=== PATIENT | female | born 1940 | race Caucasian/White ===

== ENCOUNTER 2021-05-26 08:36 | Emergency (ER) | payer MEDICARE, BC ==
[~2021-05-26] VITALS: Ht 167.6 cm; Wt 71.0 kg
[~2021-05-26 08:36] MED LIST: APIX5TAB3 PO; COR3.125T PO; FURO-150 PO; LISI2.5T14 PO; ROBCFL PO; ROSU10TA28 PO; RYT225T PO
[2021-05-26] MEDS ORDERED: diltiazem 5mg/ml 5ml inj. IV ONE (08:55)
[2021-05-26 09:11] LABS: BASOPHILS % (AUTO) 0.6 % (0-1); EOSINOPHILS # (AUTO) 0.2 X10'3 (0-0.9); EOSINOPHILS % (AUTO) 2.8 % (0-6); HEMATOCRIT 37.5 % (35.0-45.0); HEMOGLOBIN 12.7 g/dl (12.0-16.0); LYMPHOCYTES # (AUTO) 0.8 X10'3 (1.1-4.8); LYMPHOCYTES % (AUTO) 14.3 % (21-51); MEAN CORPUSCULAR HEMOGLOBIN 32.7 PG (27.0-31.0); MEAN CORPUSCULAR HGB CONC 33.9 g/dL (33.0-36.5); MEAN CORPUSCULAR VOLUME 96.3 FL (78-98); MEAN PLATELET VOLUME 8.4 FL (7.4-10.4); MONOCYTES # (AUTO) 0.4 X10'3 (0-0.9); MONOCYTES % (AUTO) 6.5 % (2-12); NEUTROPHILS # (AUTO) 4.1 X10'3 (1.8-7.7); NEUTROPHILS % (AUTO) 75.8 % (42-75); PLATELET COUNT 190 X10'3 (140-440); RED BLOOD COUNT 3.89 X10'6 (4.20-5.60); WHITE BLOOD COUNT 5.5 X10'3 (4.5-11.0)
[2021-05-26 09:28] LABS: ALANINE AMINOTRANSFERASE 75 U/L (12-78); ALBUMIN 3.7 G/DL (3.4-5.0); ALBUMIN/GLOBULIN RATIO 1.3 (1.1-1.5); ALKALINE PHOSPHATASE 121 IU/L (46-116); ANION GAP 7 (8-16); ASPARTATE AMINO TRANSFERASE 32 U/L (10-37); BILIRUBIN,TOTAL 0.8 MG/DL (0.1-1.0); BLOOD UREA NITROGEN 18 MG/DL (7-18); BUN/CREATININE RATIO 22.5 (6.6-38.0); CALCIUM 8.8 MG/DL (8.5-10.1); CHLORIDE 105 MMOL/L (99-107); GLUCOSE 121 MG/DL (70-104); POTASSIUM 4.3 MMOL/L (3.5-5.1); SODIUM 140 MMOL/L (135-145); TOTAL CARBON DIOXIDE 28.4 MMOL/L (24-32); TOTAL PROTEIN 6.6 G/DL (6.4-8.2); eGFR 69 ML/MIN
--- NOTE | 2021-05-26 09:46 | NUR ---
aleah [employer] at bedside.
[2021-05-26] MEDS ORDERED: carVEDilol 3.125mg tablet PO SCH (10:20)
[2021-05-26] MEDS ORDERED: CARV3.12 PO (10:24)
[2021-05-26 10:35] VITALS: BP 105/72
--- NOTE | 2021-05-26 10:40 | NUR ---
Pt given and understands d/c instructions. Ambulatory with a steady gait. IV d/c'd, catheter was intact.
== END 2021-05-26 10:40 | disposition home or self-care (01) ==
LOC: MERGE 08:37 → ER 08:37
DX: I48.91 Unspecified atrial fibrillation (principal); I50.23 Acute on chronic systolic (congestive) heart failure; R06.02 Shortness of breath; I11.0 Hypertensive heart disease with heart failure; I50.9 Heart failure, unspecified; Z98.890 Other specified postprocedural states; Z88.0 Allergy status to penicillin; Z88.2 Allergy status to sulfonamides; Z79.899 Other long term (current) drug therapy
CPT/HCPCS: 36415; 71045; 80053; 83880; 84484; 85025; 93005; 96374; 99285; J3490

== ENCOUNTER 2021-06-03 14:54 | Emergency (ER) | payer MEDICARE, BC ==
[~2021-06-03] VITALS: Ht 165.1 cm; Wt 96.8 kg
[~2021-06-03 14:54] MED LIST changes: +CARV3.12 PO
[2021-06-03 15:42] LABS: BASOPHILS # (AUTO) 0.1 X10'3 (0-0.2); EOSINOPHILS # (AUTO) 0.2 X10'3 (0-0.9); EOSINOPHILS % (AUTO) 3.1 % (0-6); HEMATOCRIT 33.3 % (35.0-45.0); HEMOGLOBIN 11.5 g/dl (12.0-16.0); LYMPHOCYTES % (AUTO) 16.6 % (21-51); MEAN CORPUSCULAR HGB CONC 34.6 g/dL (33.0-36.5); MEAN CORPUSCULAR VOLUME 95.4 FL (78-98); MONOCYTES # (AUTO) 0.4 X10'3 (0-0.9); MONOCYTES % (AUTO) 6.9 % (2-12); NEUTROPHILS # (AUTO) 4.2 X10'3 (1.8-7.7); NEUTROPHILS % (AUTO) 72.4 % (42-75); PLATELET COUNT 184 X10'3 (140-440); RED BLOOD COUNT 3.49 X10'6 (4.20-5.60); RED CELL DISTRIBUTION WIDTH 13.2 % (11.5-14.5); WHITE BLOOD COUNT 5.8 X10'3 (4.5-11.0)
[2021-06-03 15:58] LABS: ALANINE AMINOTRANSFERASE 56 U/L (12-78); ALBUMIN 3.4 G/DL (3.4-5.0); ALBUMIN/GLOBULIN RATIO 1.3 (1.1-1.5); ALKALINE PHOSPHATASE 102 IU/L (46-116); ANION GAP 8 (8-16); ASPARTATE AMINO TRANSFERASE 35 U/L (10-37); BILIRUBIN,TOTAL 0.7 MG/DL (0.1-1.0); BLOOD UREA NITROGEN 27 MG/DL (7-18); BUN/CREATININE RATIO 26.7 (6.6-38.0); CALCIUM 8.4 MG/DL (8.5-10.1); CHLORIDE 102 MMOL/L (99-107); CREATININE 1.01 MG/DL (0.40-0.90); GLUCOSE 110 MG/DL (70-104); POTASSIUM 4.3 MMOL/L (3.5-5.1); SODIUM 138 MMOL/L (135-145); TOTAL CARBON DIOXIDE 28.1 MMOL/L (24-32); TOTAL PROTEIN 6.1 G/DL (6.4-8.2); eGFR 53 ML/MIN
[2021-06-03] MEDS: metoprolol tartrate 1mg/ml inj IV SCH ×3 (16:54→17:47)
[2021-06-03] MEDS ORDERED: LISI2.5T14 PO (17:38)
[2021-06-03] MEDS ORDERED: CARV6.253 PO (17:38)
[2021-06-03] MEDS ORDERED: APIX5TAB3 PO (17:38)
[2021-06-03] MEDS ORDERED: ROSU10TA28 PO (17:38)
[2021-06-03] MEDS ORDERED: FURO-150 PO (17:38)
[2021-06-03] MEDS ORDERED: CARV3.122 PO (17:38)
[2021-06-03] MEDS ORDERED: PROP225C9 PO (17:38)
[2021-06-03] MEDS ORDERED: digoxin 250mcg/ml 2ml ampule IV ONE (17:40)
--- NOTE | 2021-06-03 18:19 | NUR ---
PER DAY TIME NURSE. PT INSTRUCTRED TO NOT TAKE BP MEDICATION AT HOME IF BP MEDICATION IF SBP DROPS BELOW 90
[2021-06-03] MEDS ORDERED: CARV-50 PO (18:39)
[2021-06-03] MEDS ORDERED: DIGO125T PO (18:39)
[2021-06-03 18:51] VITALS: BP 110/78
== END 2021-06-03 18:52 | disposition home or self-care (01) ==
LOC: EDBD 14:55 → ER 14:55
DX: I50.23 Acute on chronic systolic (congestive) heart failure (principal); I48.20 Chronic atrial fibrillation, unspecified; I48.91 Unspecified atrial fibrillation; I11.0 Hypertensive heart disease with heart failure; I50.9 Heart failure, unspecified; E78.00 Pure hypercholesterolemia, unspecified; Z90.49 Acquired absence of other specified parts of digestive tract; Z88.0 Allergy status to penicillin; Z88.2 Allergy status to sulfonamides; Z79.899 Other long term (current) drug therapy
CPT/HCPCS: 36415; 71045; 80053; 83880; 84484; 85025; 93005; 96374; 99285; J1160; J3490

== ENCOUNTER 2021-07-24 11:33 | Day surgery (SDC) | payer MEDICARE, BC ==
[2021-07-17 12:12] LABS: BASOPHILS % (AUTO) 0.7 % (0-1); EOSINOPHILS # (AUTO) 0.1 X10'3 (0-0.9); EOSINOPHILS % (AUTO) 2.1 % (0-6); HEMATOCRIT 34.8 % (35.0-45.0); HEMOGLOBIN 11.9 g/dl (12.0-16.0); LYMPHOCYTES # (AUTO) 0.7 X10'3 (1.1-4.8); LYMPHOCYTES % (AUTO) 16.3 % (21-51); MEAN CORPUSCULAR HEMOGLOBIN 32.8 PG (27.0-31.0); MEAN CORPUSCULAR HGB CONC 34.1 g/dL (33.0-36.5); MEAN CORPUSCULAR VOLUME 96.1 FL (78-98); MEAN PLATELET VOLUME 7.7 FL (7.4-10.4); MONOCYTES # (AUTO) 0.3 X10'3 (0-0.9); MONOCYTES % (AUTO) 7.7 % (2-12); NEUTROPHILS # (AUTO) 3.2 X10'3 (1.8-7.7); NEUTROPHILS % (AUTO) 73.2 % (42-75); PLATELET COUNT 172 X10'3 (140-440); RED BLOOD COUNT 3.62 X10'6 (4.20-5.60); RED CELL DISTRIBUTION WIDTH 14.6 % (11.5-14.5); WHITE BLOOD COUNT 4.4 X10'3 (4.5-11.0)
[2021-07-17 12:23] LABS: ALBUMIN 3.4 G/DL (3.4-5.0); ANION GAP 4 (8-16); BLOOD UREA NITROGEN 26 MG/DL (7-18); BUN/CREATININE RATIO 26.8 (6.6-38.0); CALCIUM 8.9 MG/DL (8.5-10.1); CHLORIDE 102 MMOL/L (99-107); CREATININE 0.97 MG/DL (0.40-0.90); GLUCOSE 125 MG/DL (70-104); SODIUM 139 MMOL/L (135-145); eGFR 55 ML/MIN
[2021-07-17 12:25] LABS: APTT 33 SECONDS (22-32)
[2021-07-24] VITALS (17 sets, daily range): BP systolic 87–160; BP diastolic 38–90
[~2021-07-24] VITALS: Ht 165.1 cm; Wt 107.7 kg
[~2021-07-24 11:33] MED LIST changes: +AMIO200T67 PO; +CARV-50 PO; -CARV3.12 PO; -COR3.125T PO; -ROBCFL PO; -RYT225T PO
[2021-07-24] MEDS ORDERED: MIDAZolam 1mg/ml 10ml vial IV ONE (12:00)
[2021-07-24] MEDS ORDERED: fentaNYL/PF 50MCG/1 ML 2ML syringe IV ONE (12:00)
[2021-07-24] MEDS ORDERED: normal saline 1000ml 1,000 ML IV SCH (12:00)
[2021-07-24] MEDS ORDERED: TRAZ-251 PO (12:50)
[2021-07-24] MEDS ORDERED: ASCO125T PO (12:50)
[2021-07-24] MEDS ORDERED: CARV25TA2 PO (12:50)
[2021-07-24] MEDS ORDERED: AMIO400T5 PO (12:50)
[2021-07-24] MEDS ORDERED: CHOL50004 PO (12:50)
== END 2021-07-24 15:40 | disposition home or self-care (01) ==
LOC: SSTAY O 11:33
PROVIDERS: ATTEND Internal Medicine Interventional Cardiology
DX: I48.91 Unspecified atrial fibrillation (principal); I11.0 Hypertensive heart disease with heart failure; I50.9 Heart failure, unspecified; I42.8 Other cardiomyopathies; I35.0 Nonrheumatic aortic (valve) stenosis; Z88.0 Allergy status to penicillin; Z88.2 Allergy status to sulfonamides; Z79.01 Long term (current) use of anticoagulants; Z79.899 Other long term (current) drug therapy
CPT/HCPCS: 36415; 80048; 85025; 85610; 85730; 92960; 93005; 94760; 94799; J2250; J3010; J7030

== ENCOUNTER 2021-08-05 12:22 | Emergency (ER) | payer MEDICARE, BC ==
[~2021-08-05] VITALS: Ht 162.6 cm; Wt 113.6 kg
[~2021-08-05 12:22] MED LIST changes: -AMIO200T67 PO; +AMIO400T5 PO; +ASCO125T PO; -CARV-50 PO; +CARV25TA2 PO; +CHOL50004 PO; -LISI2.5T14 PO; +TRAZ-251 PO
[2021-08-05 12:28] VITALS: BP 139/79
--- NOTE | 2021-08-05 12:34 | NUR ---
PT FELL STRIKING HEAD ON ELIQUIS PT DENIES ANY LOC
[2021-08-05] MEDS ORDERED: acetaminophen 325mg tablet PO ONE (13:45)
== END 2021-08-05 14:32 | disposition home or self-care (01) ==
LOC: ER 12:23
DX: S00.83XA Contusion of other part of head, initial encounter (principal); I48.91 Unspecified atrial fibrillation; I11.0 Hypertensive heart disease with heart failure; I50.9 Heart failure, unspecified; E78.00 Pure hypercholesterolemia, unspecified; Z90.49 Acquired absence of other specified parts of digestive tract; Z79.01 Long term (current) use of anticoagulants; Z88.0 Allergy status to penicillin; Z88.2 Allergy status to sulfonamides; Z79.899 Other long term (current) drug therapy; W18.30XA Fall on same level, unspecified, initial encounter; Y93.89 Activity, other specified; Y92.89 Other specified places as the place of occurrence of the external cause; Y99.8 Other external cause status
CPT/HCPCS: 70450; 70486; 72125; 73030; 99284

== ENCOUNTER 2022-05-03 13:46 | Emergency (ER) | payer MEDICARE, BC ==
[~2022-05-03] VITALS: Ht 172.7 cm; Wt 85.0 kg
[2022-05-03] MEDS ORDERED: BEBTELOVIMAB 175 MG/2 ML VIAL IV ONE (14:25)
[2022-05-03 16:16] VITALS: BP 162/79
[2022-05-03 16:35] LABS: EOSINOPHILS # (AUTO) 0.1 X10'3 (0-0.9); EOSINOPHILS % (AUTO) 2.3 % (0-6); HEMOGLOBIN 13.2 g/dl (12.0-16.0); LYMPHOCYTES # (AUTO) 0.4 X10'3 (1.1-4.8); MEAN CORPUSCULAR HEMOGLOBIN 33.5 PG (27.0-31.0); MEAN CORPUSCULAR HGB CONC 34.7 g/dL (33.0-36.5); MEAN CORPUSCULAR VOLUME 96.5 FL (78-98); MEAN PLATELET VOLUME 7.3 FL (7.4-10.4); MONOCYTES # (AUTO) 0.5 X10'3 (0-0.9); MONOCYTES % (AUTO) 14.2 % (2-12); NEUTROPHILS # (AUTO) 2.7 X10'3 (1.8-7.7); NEUTROPHILS % (AUTO) 71.5 % (42-75); PLATELET COUNT 158 X10'3 (140-440); RED BLOOD COUNT 3.93 X10'6 (4.20-5.60); RED CELL DISTRIBUTION WIDTH 13.6 % (11.5-14.5); WHITE BLOOD COUNT 3.7 X10'3 (4.5-11.0)
[2022-05-03 16:49] LABS: ALANINE AMINOTRANSFERASE 34 U/L (12-78); ALBUMIN 3.6 G/DL (3.4-5.0); ALBUMIN/GLOBULIN RATIO 1.3 (1.1-1.5); ALKALINE PHOSPHATASE 111 IU/L (46-116); ANION GAP 7 (8-16); ASPARTATE AMINO TRANSFERASE 28 U/L (10-37); BLOOD UREA NITROGEN 19 MG/DL (7-18); BUN/CREATININE RATIO 25.3 (6.6-38.0); CALCIUM 9.2 MG/DL (8.5-10.1); CHLORIDE 102 MMOL/L (99-107); CREATININE 0.75 MG/DL (0.40-0.90); GLUCOSE 93 MG/DL (70-104); POTASSIUM 4.4 MMOL/L (3.5-5.1); SODIUM 138 MMOL/L (135-145); TOTAL CARBON DIOXIDE 29.4 MMOL/L (24-32); TOTAL PROTEIN 6.4 G/DL (6.4-8.2); eGFR 74 ML/MIN
== END 2022-05-03 17:18 | disposition home or self-care (01) ==
LOC: ER 13:47
DX: U07.1 COVID-19 (principal); I11.9 Hypertensive heart disease without heart failure; E78.00 Pure hypercholesterolemia, unspecified; Z90.49 Acquired absence of other specified parts of digestive tract; Z88.0 Allergy status to penicillin; Z88.2 Allergy status to sulfonamides; Z79.899 Other long term (current) drug therapy
CPT/HCPCS: 36415; 80053; 85025; 99284; M0222; Q0222

== ENCOUNTER 2022-08-11 09:23 | Emergency (ER) | payer MEDICARE, BC ==
[~2022-08-11] VITALS: Ht 162.6 cm; Wt 91.8 kg
[2022-08-11 09:49] LABS: BASOPHILS % (AUTO) 1.2 % (0-1); EOSINOPHILS # (AUTO) 0.2 X10'3 (0-0.9); EOSINOPHILS % (AUTO) 3.9 % (0-6); HEMATOCRIT 38.8 % (35.0-45.0); HEMOGLOBIN 13.2 g/dl (12.0-16.0); LYMPHOCYTES # (AUTO) 0.7 X10'3 (1.1-4.8); MEAN CORPUSCULAR HEMOGLOBIN 33.7 PG (27.0-31.0); MEAN CORPUSCULAR VOLUME 99.2 FL (78-98); MEAN PLATELET VOLUME 7.3 FL (7.4-10.4); MONOCYTES # (AUTO) 0.4 X10'3 (0-0.9); MONOCYTES % (AUTO) 9.1 % (2-12); NEUTROPHILS # (AUTO) 2.8 X10'3 (1.8-7.7); NEUTROPHILS % (AUTO) 68.8 % (42-75); PLATELET COUNT 197 X10'3 (140-440); RED BLOOD COUNT 3.91 X10'6 (4.20-5.60); RED CELL DISTRIBUTION WIDTH 13.7 % (11.5-14.5); WHITE BLOOD COUNT 4.1 X10'3 (4.5-11.0)
[2022-08-11 09:58] LABS: ALANINE AMINOTRANSFERASE 43 U/L (12-78); ALBUMIN 3.8 G/DL (3.4-5.0); ALBUMIN/GLOBULIN RATIO 1.3 (1.1-1.5); ALKALINE PHOSPHATASE 163 IU/L (46-116); ANION GAP 6 (8-16); ASPARTATE AMINO TRANSFERASE 38 U/L (10-37); BILIRUBIN,TOTAL 0.8 MG/DL (0.1-1.0); BLOOD UREA NITROGEN 27 MG/DL (7-18); BUN/CREATININE RATIO 32.5 (6.6-38.0); CALCIUM 9.1 MG/DL (8.5-10.1); CHLORIDE 102 MMOL/L (99-107); CREATININE 0.83 MG/DL (0.40-0.90); GLUCOSE 112 MG/DL (70-104); POTASSIUM 4.5 MMOL/L (3.5-5.1); SODIUM 135 MMOL/L (135-145); TOTAL CARBON DIOXIDE 27.1 MMOL/L (24-32); TOTAL PROTEIN 6.8 G/DL (6.4-8.2); eGFR 66 ML/MIN
[2022-08-11 10:05] LABS: MAGNESIUM 2.1 MG/DL (1.5-2.4)
[2022-08-11] MEDS ORDERED: ROSU10TA2 PO (10:23)
[2022-08-11 11:02] VITALS: BP 135/65
== END 2022-08-11 11:04 | disposition home or self-care (01) ==
LOC: ER 09:24
DX: R00.1 Bradycardia, unspecified (principal); I11.9 Hypertensive heart disease without heart failure; E78.00 Pure hypercholesterolemia, unspecified; Z90.49 Acquired absence of other specified parts of digestive tract; Z98.890 Other specified postprocedural states; Z88.0 Allergy status to penicillin; Z88.2 Allergy status to sulfonamides; Z79.899 Other long term (current) drug therapy
CPT/HCPCS: 36415; 80053; 83735; 83880; 84484; 85025; 93005; 99284

== ENCOUNTER 2022-09-08 15:33 | Emergency (ER) | payer MEDICARE, BC ==
[~2022-09-08] VITALS: Ht 162.6 cm; Wt 90.9 kg
[~2022-09-08 15:33] MED LIST changes: +ROSU10TA2 PO
[2022-09-08 15:49] LABS: BASOPHILS # (AUTO) 0.1 X10'3 (0-0.2); BASOPHILS % (AUTO) 1.3 % (0-1); EOSINOPHILS # (AUTO) 0.2 X10'3 (0-0.9); EOSINOPHILS % (AUTO) 3.5 % (0-6); HEMATOCRIT 39.3 % (35.0-45.0); HEMOGLOBIN 13.4 g/dl (12.0-16.0); LYMPHOCYTES % (AUTO) 22.1 % (21-51); MEAN CORPUSCULAR HEMOGLOBIN 33.3 PG (27.0-31.0); MEAN CORPUSCULAR HGB CONC 34.1 g/dL (33.0-36.5); MEAN CORPUSCULAR VOLUME 97.5 FL (78-98); MEAN PLATELET VOLUME 7.5 FL (7.4-10.4); MONOCYTES # (AUTO) 0.4 X10'3 (0-0.9); MONOCYTES % (AUTO) 9.4 % (2-12); NEUTROPHILS # (AUTO) 2.8 X10'3 (1.8-7.7); NEUTROPHILS % (AUTO) 63.7 % (42-75); PLATELET COUNT 196 X10'3 (140-440); RED BLOOD COUNT 4.03 X10'6 (4.20-5.60); RED CELL DISTRIBUTION WIDTH 13.4 % (11.5-14.5); WHITE BLOOD COUNT 4.5 X10'3 (4.5-11.0)
[2022-09-08 16:04] LABS: ALANINE AMINOTRANSFERASE 33 U/L (12-78); ALBUMIN 3.7 G/DL (3.4-5.0); ALBUMIN/GLOBULIN RATIO 1.3 (1.1-1.5); ALKALINE PHOSPHATASE 171 IU/L (46-116); ANION GAP 4 (8-16); ASPARTATE AMINO TRANSFERASE 20 U/L (10-37); BILIRUBIN,TOTAL 0.7 MG/DL (0.1-1.0); BLOOD UREA NITROGEN 27 MG/DL (7-18); BUN/CREATININE RATIO 33.8 (6.6-38.0); CALCIUM 8.6 MG/DL (8.5-10.1); CHLORIDE 102 MMOL/L (99-107); GLUCOSE 115 MG/DL (70-104); POTASSIUM 4.2 MMOL/L (3.5-5.1); SODIUM 135 MMOL/L (135-145); TOTAL CARBON DIOXIDE 29.3 MMOL/L (24-32); TOTAL PROTEIN 6.5 G/DL (6.4-8.2); eGFR 69 ML/MIN
[2022-09-08 17:09] VITALS: BP 140/69
[2022-09-08] MEDS ORDERED: albuterol 2.5 MG/3 ML nebule NEB ONE (17:10)
[2022-09-08] MEDS ORDERED: ALBU8HFA PO (17:19)
== END 2022-09-08 18:47 | disposition home or self-care (01) ==
LOC: ER 15:34
DX: R06.02 Shortness of breath (principal); I11.0 Hypertensive heart disease with heart failure; E78.00 Pure hypercholesterolemia, unspecified; Z90.49 Acquired absence of other specified parts of digestive tract; Z88.0 Allergy status to penicillin; Z88.2 Allergy status to sulfonamides; Z79.899 Other long term (current) drug therapy
CPT/HCPCS: 36415; 71045; 80053; 83735; 83880; 84484; 85025; 93005; 94640; 99285

== ENCOUNTER 2023-06-24 18:18 | Emergency (ER) | payer MEDICARE, BC ==
[~2023-06-24] VITALS: Ht 160 cm; Wt 93.9 kg
[2023-06-25] MEDS ORDERED: AZIT250T3 PO (00:36)
[2023-06-25] MEDS ORDERED: BENZ-38 PO (00:36)
[2023-06-25] MEDS ORDERED: ROBDML PO (00:36)
[2023-06-25 01:26] VITALS: BP 160/82; PULSE 56; RESP 16; TEMP 97.8; O2SAT 97
== END 2023-06-25 01:00 | disposition home or self-care (01) ==
LOC: ER 18:19
DX: J18.9 Pneumonia, unspecified organism (principal); Z20.822 Contact with and (suspected) exposure to COVID-19; I11.0 Hypertensive heart disease with heart failure; E78.00 Pure hypercholesterolemia, unspecified; Z90.49 Acquired absence of other specified parts of digestive tract; Z79.899 Other long term (current) drug therapy; Z88.8 Allergy status to other drugs, medicaments and biological substances; Z88.0 Allergy status to penicillin; Z88.2 Allergy status to sulfonamides
CPT/HCPCS: 36415; 71046; 87502; 87503; 87811; 99284

== ENCOUNTER 2024-01-30 18:24 | Emergency (ER) | payer MEDICARE, BC ==
[~2024-01-30] VITALS: Ht 162.6 cm; Wt 89.5 kg
[~2024-01-30 18:24] MED LIST changes: -ROSU10TA28 PO; +ROSU10TA72 PO
[2024-01-30 20:25] LABS: BASOPHILS % (AUTO) 0.8 % (0-1); EOSINOPHILS % (AUTO) 0.5 % (0-6); HEMATOCRIT 41.2 % (35.0-45.0); HEMOGLOBIN 13.7 g/dl (12.0-16.0); LYMPHOCYTES # (AUTO) 0.9 X10'3 (1.1-4.8); LYMPHOCYTES % (AUTO) 14.7 % (21-51); MEAN CORPUSCULAR HEMOGLOBIN 32.9 PG (27.0-31.0); MEAN CORPUSCULAR HGB CONC 33.3 g/dL (33.0-36.5); MEAN CORPUSCULAR VOLUME 99.1 FL (78-98); MEAN PLATELET VOLUME 7.6 FL (7.4-10.4); MONOCYTES # (AUTO) 0.1 X10'3 (0-0.9); PLATELET COUNT 235 X10'3 (140-440); RED BLOOD COUNT 4.15 X10'6 (4.20-5.60); RED CELL DISTRIBUTION WIDTH 13.9 % (11.5-14.5); WHITE BLOOD COUNT 6.1 X10'3 (4.5-11.0)
[2024-01-30 20:37] LABS: APTT 27 SECONDS (22-32); INR 1.1 INR; PROTHROMBIN TIME 11.3 SECONDS (9.0-12.0)
[2024-01-30 20:50] LABS: ALANINE AMINOTRANSFERASE 27 U/L (12-78); ALBUMIN 3.8 G/DL (3.4-5.0); ALBUMIN/GLOBULIN RATIO 1.2 (1.1-1.5); ALKALINE PHOSPHATASE 133 IU/L (46-116); ANION GAP 9 (8-16); ASPARTATE AMINO TRANSFERASE 24 U/L (10-37); BILIRUBIN,TOTAL 0.9 MG/DL (0.1-1.0); BLOOD UREA NITROGEN 30 MG/DL (7-18); CHLORIDE 104 MMOL/L (99-107); CREATININE 0.91 MG/DL (0.40-0.90); GLUCOSE 131 MG/DL (70-104); LIPASE 18 U/L (16-77); POTASSIUM 3.9 MMOL/L (3.5-5.1); SODIUM 139 MMOL/L (135-145); TOTAL CARBON DIOXIDE 26.4 MMOL/L (24-32); TOTAL PROTEIN 6.9 G/DL (6.4-8.2); eCRCL 40 ML/MIN; eGFR 59 ML/MIN
[2024-01-30] MEDS ORDERED: DICY20TA17 PO (22:28)
[2024-01-30] MEDS ORDERED: OXYC-150 PO (22:28)
[2024-01-30] MEDS ORDERED: ONDA-243 PO (22:28)
[2024-01-30] MEDS ORDERED: CIPR750T14 PO (22:28)
[2024-01-30] MEDS ORDERED: METR-159 PO (22:28)
[2024-01-30] MEDS: ondansetron 4mg rapidly disintigrating tab PO ONE (22:29)
[2024-01-30] MEDS: dicyclomine 10 MG capsule PO ONE (22:29)
[2024-01-30] MEDS: oxyCODONE/APAP 10/325mg tablet PO ONE (22:30)
[2024-01-30 22:55] VITALS: BP 120/84; PULSE 98; RESP 18; TEMP 98.2; O2SAT 98
== END 2024-01-30 22:58 | disposition home or self-care (01) ==
LOC: ER 18:25
DX: K57.92 Diverticulitis of intestine, part unspecified, without perforation or abscess without bleeding (principal); I48.91 Unspecified atrial fibrillation; I50.9 Heart failure, unspecified; E78.00 Pure hypercholesterolemia, unspecified; I10 Essential (primary) hypertension; Z88.0 Allergy status to penicillin; Z88.2 Allergy status to sulfonamides; Z79.899 Other long term (current) drug therapy; Z98.890 Other specified postprocedural states
CPT/HCPCS: 36415; 74176; 80053; 83605; 83690; 84145; 85025; 85610; 85730; 87040; 99284

== ENCOUNTER 2024-02-02 00:04 | Inpatient (IN) | payer MEDICARE, BC ==
[~2024-02-02] VITALS: Ht 172.7 cm; Wt 102.0 kg
[~2024-02-02 00:04] MED LIST changes: +CIPR750T14 PO; +DICY20TA17 PO; +METR-159 PO; +ONDA-243 PO; +OXYC-150 PO
[2024-02-02 01:05] LABS: BASOPHILS % (AUTO) 0.2 % (0-1); EOSINOPHILS % (AUTO) 0.1 % (0-6); HEMOGLOBIN 11.9 g/dl (12.0-16.0); LYMPHOCYTES # (AUTO) 0.3 X10'3 (1.1-4.8); LYMPHOCYTES % (AUTO) 2.9 % (21-51); MEAN CORPUSCULAR HEMOGLOBIN 33.5 PG (27.0-31.0); MEAN CORPUSCULAR HGB CONC 33.9 g/dL (33.0-36.5); MEAN CORPUSCULAR VOLUME 98.9 FL (78-98); MEAN PLATELET VOLUME 8.2 FL (7.4-10.4); MONOCYTES # (AUTO) 0.3 X10'3 (0-0.9); MONOCYTES % (AUTO) 3.5 % (2-12); NEUTROPHILS # (AUTO) 9.4 X10'3 (1.8-7.7); NEUTROPHILS % (AUTO) 93.3 % (42-75); PLATELET COUNT 150 X10'3 (140-440); RED BLOOD COUNT 3.54 X10'6 (4.20-5.60)
[2024-02-02 01:19] LABS: ALANINE AMINOTRANSFERASE 26 U/L (12-78); ALBUMIN 2.6 G/DL (3.4-5.0); ALBUMIN/GLOBULIN RATIO 0.8 (1.1-1.5); ALKALINE PHOSPHATASE 57 IU/L (46-116); ANION GAP 4 (8-16); ASPARTATE AMINO TRANSFERASE 24 U/L (10-37); BILIRUBIN,TOTAL 1.1 MG/DL (0.1-1.0); BLOOD UREA NITROGEN 67 MG/DL (7-18); BUN/CREATININE RATIO 40.1 (10.0-20.0); CALCIUM 9.6 MG/DL (8.5-10.1); CHLORIDE 97 MMOL/L (99-107); CREATININE 1.67 MG/DL (0.40-0.90); GLUCOSE 103 MG/DL (70-104); POTASSIUM 3.7 MMOL/L (3.5-5.1); SODIUM 126 MMOL/L (135-145); TOTAL CARBON DIOXIDE 24.7 MMOL/L (24-32); TOTAL PROTEIN 5.8 G/DL (6.4-8.2); eCRCL 25 ML/MIN; eGFR 29 ML/MIN
[2024-02-02 01:21] LABS: LIPASE 22 U/L (16-77); MAGNESIUM 2.1 MG/DL (1.5-2.4)
[2024-02-02 01:24] LABS: BILIRUBIN,DIRECT 0.4 MG/DL (0-0.3)
[2024-02-02] MEDS: normal saline 1000ml 1,000 ML IV ONE (02:12)
[2024-02-02] MEDS ORDERED: EMPA10TA PO (02:24)
[2024-02-02] MEDS ORDERED: AMI200T PO (02:24)
[2024-02-02] MEDS ORDERED: LOSA100T58 PO (02:24)
[2024-02-02] MEDS ORDERED: SPIR25TA5 PO (02:24)
[2024-02-02] MEDS ORDERED: CARV3.1244 PO (02:24)
[2024-02-02] MEDS ORDERED: magnesium hydroxide 30ml (MOM) UD suspension PO PRN (02:30)
[2024-02-02] MEDS ORDERED: magnesium sulf-water 4G/100mL 100 ML IV PRN (02:30)
[2024-02-02] MEDS ORDERED: magnesium Cl slow-release 64mg tablet PO PRN (02:30)
[2024-02-02] MEDS ORDERED: mag hydrox/Alum hydrox/simeth 30ml oral suspension PO PRN (02:30)
[2024-02-02] MEDS ORDERED: potassium Cl 40MEQ/1/2NS 520ml 520 ML IV PRN (02:30)
[2024-02-02] MEDS ORDERED: morphine 2 MG/ML inj. syringe IV PRN (02:30)
[2024-02-02] MEDS ORDERED: acetaminophen 325mg tablet PO PRN (02:30)
[2024-02-02] MEDS ORDERED: ondansetron/PF 4mg/2ml inj IV PRN (02:30)
[2024-02-02] MEDS ORDERED: potassium Cl 20 mEq SR tablet PO PRN (02:30)
[2024-02-02] MEDS: ringers solution, lacted 1,000 ML IV ONE (03:22)
[2024-02-02 03:31] LABS: PRO BRAIN NATRIURETIC PEPTIDE 4249 PG/ML (0-450)
[2024-02-02] MEDS: normal saline 1000ml 1,000 ML IV SCH (03:47)
[2024-02-02 04:02] LABS: BILIRUBIN,URINE NEGATIVE (Neg); CLARITY,URINE CLEAR (Clear); COLOR,URINE YELLOW (Yellow); GLUCOSE, URINE 500 mg/dl (Neg); KETONES,URINE NEGATIVE (Neg); LEUKOCYTE ESTERASE ,URINE NEGATIVE (Neg); NITRITES, URINE NEGATIVE (Neg); OCCULT BLOOD,URINE NEGATIVE (Neg); PH,URINE 5.5 (4.8-8.0); PROTEIN,URINE 30 mg/dl (Neg); UROBILINOGEN,URINE 0.2 E.U/dL (0.2-1.0)
[2024-02-02 04:04] LABS: UA COLLECTION TYPE CLN CATCH MIDSTREAM
[2024-02-02 04:10] LABS: BACTERIA,URINE FEW /HPF (Neg); RBC,URINE NONE SEEN /HPF (0-2); WBC,URINE 0-4 /HPF (0-4)
[2024-02-02 04:11] LABS: FINE GRANULAR CAST 0-3 /LPF (NEGATIVE); MUCUS STRANDS NONE SEEN /LPF (Neg); SQUAMOUS EPITHELIAL CELL,UR FEW /LPF (FEW); TRANSITIONAL EPI CELLS,URINE MODERATE /HPF
[2024-02-02 05:00] VITALS: BP 96/53; PULSE 98; RESP 20; TEMP 98.1; O2SAT 94
[2024-02-02] MEDS: metroNIDAZOLE-Flagyl 500mg/NS 100 ML IV SCH (08:51)
[2024-02-02] MEDS: pantoprazole 40 MG vial IV SCH (08:51)
[2024-02-02] MEDS: docusate sod 100mg capsule PO SCH (08:53)
[2024-02-02] MEDS: HYDROcodone/acetaminophen 5mg/325mg tablet PO PRN (08:57)
[2024-02-02] MEDS: heparin, porcine 5000 units/ml vial SQ SCH (08:58)
[2024-02-02] MEDS: levoFLOXACIN-Levaquin 750MG/D5 150 ML IV SCH (09:59)
[2024-02-02 10:00] VITALS: BP 86/52; PULSE 111; RESP 16; TEMP 98.7; O2SAT 95
[2024-02-02 18:00] VITALS: BP 107/65; PULSE 107; RESP 14; TEMP 97.4; O2SAT 94
[2024-02-02] MEDS ORDERED: temazepam 15mg capsule PO PRN (21:00)
[2024-02-02 22:00] VITALS: BP 127/46; PULSE 91; RESP 19; TEMP 97.2; O2SAT 95
[2024-02-03] MEDS: morphine 2 MG/ML inj. syringe IV PRN (01:27)
[2024-02-03 05:28] LABS: BASOPHILS % (AUTO) 0.1 % (0-1); EOSINOPHILS % (AUTO) 0.2 % (0-6); HEMATOCRIT 35.2 % (35.0-45.0); LYMPHOCYTES # (AUTO) 0.5 X10'3 (1.1-4.8); LYMPHOCYTES % (AUTO) 4.2 % (21-51); MEAN CORPUSCULAR HEMOGLOBIN 33.4 PG (27.0-31.0); MEAN CORPUSCULAR VOLUME 98.3 FL (78-98); MEAN PLATELET VOLUME 8.1 FL (7.4-10.4); MONOCYTES # (AUTO) 0.5 X10'3 (0-0.9); MONOCYTES % (AUTO) 4.3 % (2-12); NEUTROPHILS # (AUTO) 10.5 X10'3 (1.8-7.7); NEUTROPHILS % (AUTO) 91.2 % (42-75); PLATELET COUNT 182 X10'3 (140-440); RED BLOOD COUNT 3.58 X10'6 (4.20-5.60); RED CELL DISTRIBUTION WIDTH 14.1 % (11.5-14.5); WHITE BLOOD COUNT 11.5 X10'3 (4.5-11.0)
[2024-02-03 05:43] LABS: ALANINE AMINOTRANSFERASE 24 U/L (12-78); ALBUMIN 2.4 G/DL (3.4-5.0); ALBUMIN/GLOBULIN RATIO 0.7 (1.1-1.5); ALKALINE PHOSPHATASE 66 IU/L (46-116); ANION GAP 5 (8-16); ASPARTATE AMINO TRANSFERASE 24 U/L (10-37); BILIRUBIN,TOTAL 0.9 MG/DL (0.1-1.0); BLOOD UREA NITROGEN 47 MG/DL (7-18); CALCIUM 8.4 MG/DL (8.5-10.1); CHLORIDE 102 MMOL/L (99-107); GLUCOSE 80 MG/DL (70-104); POTASSIUM 3.4 MMOL/L (3.5-5.1); SODIUM 131 MMOL/L (135-145); TOTAL CARBON DIOXIDE 23.9 MMOL/L (24-32); TOTAL PROTEIN 5.7 G/DL (6.4-8.2); eCRCL 42 ML/MIN; eGFR 53 ML/MIN
[2024-02-03 06:00] VITALS: BP 134/83; PULSE 91; RESP 18; TEMP 98.3; O2SAT 93
[2024-02-03] MEDS: HYDROcodone/acetaminophen 5mg/325mg tablet PO PRN (07:01)
[2024-02-03] MEDS: potassium Cl 20 mEq SR tablet PO PRN (07:03)
[2024-02-03 10:00] VITALS: BP 117/72; PULSE 110; RESP 20; TEMP 97.7; O2SAT 93
[2024-02-03] MEDS: losartan 25mg tablet PO SCH (15:17)
[2024-02-03 15:18] VITALS: BP 120/77; PULSE 88
[2024-02-03 18:00] VITALS: BP 128/80; PULSE 105; RESP 18; TEMP 97.9; O2SAT 97
[2024-02-03] MEDS: carVEDilol 3.125mg tablet PO SCH (19:52)
[2024-02-03 22:00] VITALS: BP 120/90; PULSE 105; RESP 16; TEMP 98.7; O2SAT 96
[2024-02-04 06:00] VITALS: BP 102/79; PULSE 116; RESP 18; TEMP 98.4; O2SAT 96
[2024-02-04 07:03] LABS: BASOPHILS % (AUTO) 0.2 % (0-1); EOSINOPHILS # (AUTO) 0.1 X10'3 (0-0.9); EOSINOPHILS % (AUTO) 0.5 % (0-6); HEMATOCRIT 35.3 % (35.0-45.0); HEMOGLOBIN 12.1 g/dl (12.0-16.0); LYMPHOCYTES # (AUTO) 0.4 X10'3 (1.1-4.8); MEAN CORPUSCULAR HEMOGLOBIN 33.4 PG (27.0-31.0); MEAN CORPUSCULAR HGB CONC 34.2 g/dL (33.0-36.5); MEAN CORPUSCULAR VOLUME 97.5 FL (78-98); MEAN PLATELET VOLUME 7.6 FL (7.4-10.4); MONOCYTES # (AUTO) 0.7 X10'3 (0-0.9); MONOCYTES % (AUTO) 7.3 % (2-12); NEUTROPHILS # (AUTO) 8.7 X10'3 (1.8-7.7); PLATELET COUNT 188 X10'3 (140-440); RED BLOOD COUNT 3.62 X10'6 (4.20-5.60); RED CELL DISTRIBUTION WIDTH 14.2 % (11.5-14.5); WHITE BLOOD COUNT 9.9 X10'3 (4.5-11.0)
[2024-02-04 07:41] LABS: ALANINE AMINOTRANSFERASE 20 U/L (12-78); ALBUMIN 2.3 G/DL (3.4-5.0); ALBUMIN/GLOBULIN RATIO 0.7 (1.1-1.5); ALKALINE PHOSPHATASE 67 IU/L (46-116); ANION GAP 6 (8-16); ASPARTATE AMINO TRANSFERASE 14 U/L (10-37); BLOOD UREA NITROGEN 43 MG/DL (7-18); BUN/CREATININE RATIO 42.2 (10.0-20.0); CALCIUM 8.6 MG/DL (8.5-10.1); CHLORIDE 103 MMOL/L (99-107); CREATININE 1.02 MG/DL (0.40-0.90); GLUCOSE 142 MG/DL (70-104); POTASSIUM 4.8 MMOL/L (3.5-5.1); SODIUM 131 MMOL/L (135-145); TOTAL CARBON DIOXIDE 22.4 MMOL/L (24-32); TOTAL PROTEIN 5.4 G/DL (6.4-8.2); eCRCL 41 ML/MIN; eGFR 52 ML/MIN
[2024-02-04] MEDS: cholecalciferol (vitamin D3) 1,000 unit (25mcg) tablet PO SCH (07:48)
[2024-02-04] MEDS: atorvastatin 20mg tablet PO SCH (07:48)
[2024-02-04] MEDS: amiodarone 200mg tablet PO SCH (07:48)
[2024-02-04 08:00] VITALS: RESP 18; O2SAT 96
[2024-02-04] MEDS: levoFLOXACIN-Levaquin 750MG/D5 150 ML IV SCH (09:13)
[2024-02-04 10:00] VITALS: BP 124/76; PULSE 109; RESP 18; TEMP 97.8; O2SAT 97
[2024-02-04] MEDS ORDERED: METR-159 PO (12:38)
[2024-02-04] MEDS ORDERED: LOSA25TA41 PO (12:38)
[2024-02-04] MEDS ORDERED: LEVO-65 PO (12:38)
== END 2024-02-04 16:55 | disposition home health service (06) | DRG 391 ==
LOC: ER 00:05 → ED HOLD 02:40 → ORTHO 4S 04:25
PROVIDERS: ADMIT Surgery; ATTEND Internal Medicine
DX: K57.92 Diverticulitis of intestine, part unspecified, without perforation or abscess without bleeding (principal); J96.00 Acute respiratory failure, unspecified whether with hypoxia or hypercapnia; N17.9 Acute kidney failure, unspecified; E87.1 Hypo-osmolality and hyponatremia; I13.0 Hypertensive heart and chronic kidney disease with heart failure and stage 1 through stage 4 chronic kidney disease, or unspecified chronic kidney disease; I50.32 Chronic diastolic (congestive) heart failure; I95.9 Hypotension, unspecified; E87.6 Hypokalemia; Z66 Do not resuscitate; K58.9 Irritable bowel syndrome, unspecified; I48.91 Unspecified atrial fibrillation; E86.0 Dehydration; N18.9 Chronic kidney disease, unspecified; E78.00 Pure hypercholesterolemia, unspecified; Z88.0 Allergy status to penicillin; Z79.899 Other long term (current) drug therapy; Z88.6 Allergy status to analgesic agent; Z90.49 Acquired absence of other specified parts of digestive tract; Z79.01 Long term (current) use of anticoagulants; Z88.2 Allergy status to sulfonamides
CPT/HCPCS: 36415; 71045; 74176; 80048; 80053; 80076; 81001; 83605; 83690; 83735; 83880; 84145; 84484; 85025; 85610; 85730; 87040; 87081; 93005; 96360; 97116; 97161; 97530; 99284; 99285; G0378; J1644; J1956; J2270; J2470; J3490; J7030; J7120

== ENCOUNTER 2024-04-22 16:53 | Emergency (ER) | payer MEDICARE, BC ==
[~2024-04-22] VITALS: Ht 160 cm; Wt 92.2 kg
[~2024-04-22 16:53] MED LIST changes: -AMIO400T5 PO; -ASCO125T PO; -CARV25TA2 PO; +CARV3.1244 PO; -CIPR750T14 PO; -DICY20TA17 PO; +EMPA10TA PO; -FURO-150 PO; +LOSA25TA41 PO; -METR-159 PO; -ONDA-243 PO; -OXYC-150 PO; -ROSU10TA2 PO; +SPIR25TA5 PO; -TRAZ-251 PO
[2024-04-22 17:22] LABS: BILIRUBIN,URINE NEGATIVE (Neg); CLARITY,URINE CLOUDY (Clear); COLOR,URINE YELLOW (Yellow); GLUCOSE, URINE 250 mg/dl (Neg); KETONES,URINE NEGATIVE (Neg); LEUKOCYTE ESTERASE ,URINE LARGE (Neg); NITRITES, URINE NEGATIVE (Neg); OCCULT BLOOD,URINE LARGE (Neg); PROTEIN,URINE TRACE mg/dl (Neg); UROBILINOGEN,URINE 0.2 E.U/dL (0.2-1.0)
[2024-04-22 17:27] LABS: UA COLLECTION TYPE FOLEY CATH
[2024-04-22 17:28] LABS: BACTERIA,URINE 3+ /HPF (Neg); RBC,URINE TNTC /HPF (0-2); SQUAMOUS EPITHELIAL CELL,UR NONE SEEN /LPF (FEW); WBC,URINE 50-100 /HPF (0-4)
[2024-04-22 17:29] LABS: CAL OXALATE CRYSTALS FEW /HPF (NEGATIVE); YEAST MANY /HPF (NEGATIVE)
[2024-04-22 17:58] LABS: BASOPHILS # (AUTO) 0.1 X10'3 (0-0.2); BASOPHILS % (AUTO) 1.1 % (0-1); EOSINOPHILS # (AUTO) 0.2 X10'3 (0-0.9); EOSINOPHILS % (AUTO) 2.2 % (0-6); HEMATOCRIT 34.2 % (35.0-45.0); HEMOGLOBIN 11.1 g/dl (12.0-16.0); LYMPHOCYTES # (AUTO) 1.7 X10'3 (1.1-4.8); LYMPHOCYTES % (AUTO) 22.8 % (21-51); MEAN CORPUSCULAR HEMOGLOBIN 30.8 PG (27.0-31.0); MEAN CORPUSCULAR HGB CONC 32.6 g/dL (33.0-36.5); MEAN CORPUSCULAR VOLUME 94.3 FL (78-98); MEAN PLATELET VOLUME 7.8 FL (7.4-10.4); MONOCYTES # (AUTO) 0.6 X10'3 (0-0.9); MONOCYTES % (AUTO) 7.6 % (2-12); NEUTROPHILS # (AUTO) 4.8 X10'3 (1.8-7.7); NEUTROPHILS % (AUTO) 66.3 % (42-75); PLATELET COUNT 292 X10'3 (140-440); RED BLOOD COUNT 3.62 X10'6 (4.20-5.60); RED CELL DISTRIBUTION WIDTH 16.2 % (11.5-14.5); WHITE BLOOD COUNT 7.3 X10'3 (4.5-11.0)
[2024-04-22 18:05] LABS: ALBUMIN 2.6 G/DL (3.4-5.0); ANION GAP 5 (8-16); BLOOD UREA NITROGEN 41 MG/DL (7-18); BUN/CREATININE RATIO 39.8 (10.0-20.0); CALCIUM 8.6 MG/DL (8.5-10.1); CHLORIDE 97 MMOL/L (99-107); CREATININE 1.03 MG/DL (0.40-0.90); GLUCOSE 119 MG/DL (70-104); LIPASE 19 U/L (16-77); MAGNESIUM 1.8 MG/DL (1.5-2.4); POTASSIUM 4.1 MMOL/L (3.5-5.1); SODIUM 131 MMOL/L (135-145); TOTAL CARBON DIOXIDE 28.8 MMOL/L (24-32); eCRCL 34 ML/MIN; eGFR 51 ML/MIN
[2024-04-22] MEDS ORDERED: iohexol 300mg/ml 100ml inj. ONE (18:24)
[2024-04-22 18:50] LABS: ALANINE AMINOTRANSFERASE 22 U/L (12-78); ALBUMIN/GLOBULIN RATIO 0.7 (1.1-1.5); ALKALINE PHOSPHATASE 166 IU/L (46-116); ASPARTATE AMINO TRANSFERASE 22 U/L (10-37); BILIRUBIN,DIRECT 0.3 MG/DL (0-0.3); BILIRUBIN,TOTAL 0.5 MG/DL (0.1-1.0); TOTAL PROTEIN 6.4 G/DL (6.4-8.2)
[2024-04-22] MEDS ORDERED: NITR100C6 PO (20:30)
[2024-04-22] MEDS: CefTRIAXone/D5W-Rocephin 1gm 50 ML IV ONE (20:48)
[2024-04-22] MEDS: LidoCAINE 2% Topical Jelly 11mL syringe (UROJET) TOP ONE (22:47)
[2024-04-22] MEDS: fluconazole 100mg tablet PO ONE (22:47)
[2024-04-22] MEDS: ondansetron/PF 4mg/2ml inj IV ONE (23:24)
[2024-04-22] MEDS: morphine 4 MG/ML inj SYRINge IV ONE (23:24)
[2024-04-23 10:32] VITALS: BP 98/79; PULSE 95; RESP 18; TEMP 98.2; O2SAT 98
== END 2024-04-23 10:35 | disposition home or self-care (01) ==
LOC: ER 16:55
DX: N39.0 Urinary tract infection, site not specified (principal); R31.9 Hematuria, unspecified; I13.0 Hypertensive heart and chronic kidney disease with heart failure and stage 1 through stage 4 chronic kidney disease, or unspecified chronic kidney disease; I50.9 Heart failure, unspecified; N18.9 Chronic kidney disease, unspecified; I48.91 Unspecified atrial fibrillation; Z90.49 Acquired absence of other specified parts of digestive tract; E78.00 Pure hypercholesterolemia, unspecified; Z88.0 Allergy status to penicillin; Z88.2 Allergy status to sulfonamides; Z79.899 Other long term (current) drug therapy; Z48.03 Encounter for change or removal of drains
CPT/HCPCS: 36415; 51702; 74177; 80048; 80076; 81001; 83690; 83735; 85025; 87077; 87088; 87186; 96365; 96375; 99285; A4314; A4346; A4355; A4615; A6213; J0696; J2270; J2405; J7030; Q9967; Z7610

== ENCOUNTER 2024-05-11 09:31 | Inpatient (IN) | payer MEDICARE, BC ==
[~2024-05-11] VITALS: Ht 170.2 cm; Wt 86.0 kg
[~2024-05-11 09:31] MED LIST changes: +AMI200T PO; +ASCORBIC ACID PO; -CHOL50004 PO; +CYMBALTA PO; +FURO-150 PO; +HYDR-3964 PO; +LIDOCAINE 4% CREAM; -LOSA25TA41 PO; +MAG AL PO; +MAGN200T8 PO; +OXYB15TA19 PO; +POLY119P2 PO; +POTASSIUM PO; +PROBIOTIC PO; +ROPI0.2544 PO; +SENN-360 PO; +TYLENOL PO; +ZINC PO
[2024-05-11] MEDS ORDERED: cefepime 2g/NS 100ml ADVANTAGE 100 ML IV STA (09:47)
[2024-05-11 10:18] LABS: BASOPHILS % (AUTO) 0.4 % (0-1); EOSINOPHILS % (AUTO) 0.4 % (0-6); HEMATOCRIT 39.4 % (35.0-45.0); HEMOGLOBIN 12.6 g/dl (12.0-16.0); LYMPHOCYTES # (AUTO) 1.5 X10'3 (1.1-4.8); MEAN CORPUSCULAR HEMOGLOBIN 29.8 PG (27.0-31.0); MEAN CORPUSCULAR VOLUME 93.1 FL (78-98); MEAN PLATELET VOLUME 7.6 FL (7.4-10.4); MONOCYTES # (AUTO) 0.6 X10'3 (0-0.9); MONOCYTES % (AUTO) 8.7 % (2-12); NEUTROPHILS # (AUTO) 4.6 X10'3 (1.8-7.7); NEUTROPHILS % (AUTO) 68.5 % (42-75); PLATELET COUNT 280 X10'3 (140-440); RED BLOOD COUNT 4.24 X10'6 (4.20-5.60); RED CELL DISTRIBUTION WIDTH 16.8 % (11.5-14.5); WHITE BLOOD COUNT 6.7 X10'3 (4.5-11.0)
[2024-05-11 10:24] LABS: ALBUMIN 2.6 G/DL (3.4-5.0); ALBUMIN/GLOBULIN RATIO 0.7 (1.1-1.5); ALKALINE PHOSPHATASE 201 IU/L (46-116); ANION GAP 6 (8-16); ASPARTATE AMINO TRANSFERASE 31 U/L (10-37); BILIRUBIN,TOTAL 1.1 MG/DL (0.1-1.0); BLOOD UREA NITROGEN 37 MG/DL (7-18); BUN/CREATININE RATIO 32.2 (10.0-20.0); CALCIUM 8.9 MG/DL (8.5-10.1); CHLORIDE 99 MMOL/L (99-107); CREATININE 1.15 MG/DL (0.40-0.90); GLUCOSE 131 MG/DL (70-104); POTASSIUM 4.3 MMOL/L (3.5-5.1); SODIUM 135 MMOL/L (135-145); TOTAL CARBON DIOXIDE 30.2 MMOL/L (24-32); TOTAL PROTEIN 6.5 G/DL (6.4-8.2); eCRCL 35 ML/MIN; eGFR 45 ML/MIN
[2024-05-11] MEDS ORDERED: iohexol 300mg/ml 100ml inj. ONE (10:27)
[2024-05-11] MEDS: CEFEPIME 2gm in D5W 50mL 50 ML IV STA (10:29)
[2024-05-11] MEDS: normal saline 1000ml 1,000 ML IV ONE ×2 (10:29→11:59)
[2024-05-11 10:42] LABS: ALANINE AMINOTRANSFERASE < 6 U/L (12-78)
[2024-05-11] MEDS: normal saline 500ml IV soln 500 ML IV SCH (11:59)
[2024-05-11 12:22] LABS: BILIRUBIN,URINE SMALL (Neg); CLARITY,URINE TURBID (Clear); COLOR,URINE YELLOW (Yellow); GLUCOSE, URINE 500 mg/dl (Neg); KETONES,URINE NEGATIVE (Neg); LEUKOCYTE ESTERASE ,URINE NEGATIVE (Neg); OCCULT BLOOD,URINE LARGE (Neg); PH,URINE 5.5 (4.8-8.0); PROTEIN,URINE >=300 mg/dl (Neg); UROBILINOGEN,URINE 0.2 E.U/dL (0.2-1.0)
[2024-05-11 12:28] LABS: UA COLLECTION TYPE STRAIGHT CATH
[2024-05-11 12:30] LABS: NITRITES, URINE NEGATIVE (Neg)
[2024-05-11 12:39] LABS: RBC,URINE 20-50 /HPF (0-2)
[2024-05-11 12:40] LABS: BACTERIA,URINE 2+ /HPF (Neg)
[2024-05-11 12:41] LABS: SQUAMOUS EPITHELIAL CELL,UR FEW /LPF (FEW); YEAST MODERATE /HPF (NEGATIVE)
[2024-05-11] MEDS ORDERED: magnesium Cl slow-release 64mg tablet PO PRN (15:30)
[2024-05-11] MEDS ORDERED: acetaminophen 325mg tablet PO PRN (15:30)
[2024-05-11] MEDS ORDERED: magnesium sulf-water 4G/100mL 100 ML IV PRN (15:30)
[2024-05-11] MEDS ORDERED: potassium Cl 20 mEq SR tablet PO PRN ×2 (15:30)
[2024-05-11] MEDS ORDERED: potassium Cl 40MEQ/1/2NS 520ml 520 ML IV PRN (15:30)
[2024-05-11] MEDS ORDERED: magnesium sulf-water 2g/50mL 50 ML IV PRN (15:30)
[2024-05-11] MEDS ORDERED: ondansetron/PF 4mg/2ml inj IV PRN (15:30)
[2024-05-11] MEDS: normal saline 1000ml 1,000 ML IV SCH ×2 (16:00→18:20)
[2024-05-11] MEDS: acetaminophen 325mg tablet PO SCH (16:00)
[2024-05-11] MEDS: furosemide 10 MG/1 ML 10ml inj IV ONE (16:01)
[2024-05-11] MEDS: PERFLUTREN PROTEIN-A MICROSPHR (Optison) 0.22 MG/ML 3ML VIAL IV ONE (17:55)
[2024-05-11 18:39] LABS: BILIRUBIN,DIRECT 0.5 MG/DL (0-0.3); PRO BRAIN NATRIURETIC PEPTIDE 15951 PG/ML (0-450); THYROID STIMULATING HORMONE 4.63 ulU/ml (0.34-4.50)
[2024-05-11] MEDS ORDERED: carVEDilol 3.125mg tablet PO SCH (20:00)
[2024-05-11] MEDS ORDERED: apixaban 5mg tablet PO SCH (20:00)
[2024-05-11 21:00] VITALS: RESP 16; O2SAT 100
[2024-05-11 22:00] VITALS: BP 131/83; PULSE 110; RESP 16; TEMP 97.8; O2SAT 99
[2024-05-11] MEDS: amiodarone 200mg tablet PO SCH (22:49)
[2024-05-11] MEDS: atorvastatin 20mg tablet PO SCH (22:49)
[2024-05-11] MEDS: heparin, porcine 5000 units/ml vial SQ SCH (22:50)
[2024-05-12] VITALS (7 sets, daily range): BP systolic 90–111; BP diastolic 61–71; PULSE 80–113; RESP 14–20; TEMP 96.8–98.2; O2SAT 92–97
[2024-05-12 06:32] LABS: BASOPHILS % (AUTO) 0.6 % (0-1); EOSINOPHILS # (AUTO) 0.1 X10'3 (0-0.9); EOSINOPHILS % (AUTO) 0.9 % (0-6); HEMATOCRIT 36.2 % (35.0-45.0); LYMPHOCYTES # (AUTO) 1.2 X10'3 (1.1-4.8); LYMPHOCYTES % (AUTO) 18.8 % (21-51); MEAN CORPUSCULAR HEMOGLOBIN 30.7 PG (27.0-31.0); MEAN CORPUSCULAR HGB CONC 33.1 g/dL (33.0-36.5); MEAN CORPUSCULAR VOLUME 92.7 FL (78-98); MEAN PLATELET VOLUME 7.8 FL (7.4-10.4); MONOCYTES # (AUTO) 0.5 X10'3 (0-0.9); MONOCYTES % (AUTO) 7.4 % (2-12); NEUTROPHILS # (AUTO) 4.8 X10'3 (1.8-7.7); NEUTROPHILS % (AUTO) 72.3 % (42-75); PLATELET COUNT 269 X10'3 (140-440); RED BLOOD COUNT 3.91 X10'6 (4.20-5.60); WHITE BLOOD COUNT 6.6 X10'3 (4.5-11.0)
[2024-05-12 07:04] LABS: ALANINE AMINOTRANSFERASE 13 U/L (12-78); ALBUMIN 2.3 G/DL (3.4-5.0); ALBUMIN/GLOBULIN RATIO 0.7 (1.1-1.5); ALKALINE PHOSPHATASE 176 IU/L (46-116); ANION GAP 7 (8-16); ASPARTATE AMINO TRANSFERASE 31 U/L (10-37); BILIRUBIN,TOTAL 0.9 MG/DL (0.1-1.0); BLOOD UREA NITROGEN 35 MG/DL (7-18); BUN/CREATININE RATIO 32.1 (10.0-20.0); CALCIUM 8.3 MG/DL (8.5-10.1); CHLORIDE 100 MMOL/L (99-107); CREATININE 1.09 MG/DL (0.40-0.90); GLUCOSE 105 MG/DL (70-104); POTASSIUM 3.8 MMOL/L (3.5-5.1); SODIUM 135 MMOL/L (135-145); TOTAL CARBON DIOXIDE 28.1 MMOL/L (24-32); TOTAL PROTEIN 5.8 G/DL (6.4-8.2); eCRCL 37 ML/MIN; eGFR 48 ML/MIN
[2024-05-12] MEDS ORDERED: EMPAGLIFLOZIN 10 MG TABLET PO SCH (08:00)
[2024-05-12] MEDS: CefTRIAXone 2gm/D5W 50ml BAG 50 ML IV SCH (09:13)
[2024-05-12] MEDS ORDERED: furosemide 40mg/4ml inj IV SCH (19:35)
[2024-05-12] MEDS: furosemide 20 MG/2 ML vial IV ONE (20:36)
[2024-05-13] MEDS: HYDROcodone/acetaminophen 5mg/325mg tablet PO ONE (04:18)
[2024-05-13 05:59] LABS: BASOPHILS % (AUTO) 0.5 % (0-1); EOSINOPHILS # (AUTO) 0.1 X10'3 (0-0.9); EOSINOPHILS % (AUTO) 1.3 % (0-6); HEMATOCRIT 37.1 % (35.0-45.0); LYMPHOCYTES # (AUTO) 1.3 X10'3 (1.1-4.8); LYMPHOCYTES % (AUTO) 20.6 % (21-51); MEAN CORPUSCULAR HEMOGLOBIN 30.1 PG (27.0-31.0); MEAN CORPUSCULAR HGB CONC 32.5 g/dL (33.0-36.5); MEAN CORPUSCULAR VOLUME 92.7 FL (78-98); MEAN PLATELET VOLUME 7.6 FL (7.4-10.4); MONOCYTES # (AUTO) 0.4 X10'3 (0-0.9); MONOCYTES % (AUTO) 6.2 % (2-12); NEUTROPHILS # (AUTO) 4.5 X10'3 (1.8-7.7); NEUTROPHILS % (AUTO) 71.4 % (42-75); PLATELET COUNT 278 X10'3 (140-440); WHITE BLOOD COUNT 6.3 X10'3 (4.5-11.0)
[2024-05-13 06:00] VITALS: BP 108/78; PULSE 115; RESP 19; TEMP 97.5; O2SAT 95
[2024-05-13 06:14] LABS: ALANINE AMINOTRANSFERASE 15 U/L (12-78); ALBUMIN 2.4 G/DL (3.4-5.0); ALBUMIN/GLOBULIN RATIO 0.7 (1.1-1.5); ALKALINE PHOSPHATASE 179 IU/L (46-116); ANION GAP 7 (8-16); ASPARTATE AMINO TRANSFERASE 27 U/L (10-37); BILIRUBIN,TOTAL 0.8 MG/DL (0.1-1.0); BLOOD UREA NITROGEN 37 MG/DL (7-18); BUN/CREATININE RATIO 31.6 (10.0-20.0); CALCIUM 8.6 MG/DL (8.5-10.1); CHLORIDE 102 MMOL/L (99-107); CREATININE 1.17 MG/DL (0.40-0.90); GLUCOSE 122 MG/DL (70-104); POTASSIUM 3.9 MMOL/L (3.5-5.1); SODIUM 138 MMOL/L (135-145); TOTAL CARBON DIOXIDE 28.9 MMOL/L (24-32); eCRCL 35 ML/MIN; eGFR 44 ML/MIN
[2024-05-13 08:00] VITALS: RESP 14; O2SAT 96
[2024-05-13] MEDS ORDERED: spironolactone 25 MG tablet PO SCH (08:30)
[2024-05-13] MEDS: furosemide 20 MG/2 ML vial IV SCH (09:17)
[2024-05-13 10:00] VITALS: BP 101/56; PULSE 115; RESP 18; TEMP 96.9; O2SAT 96
[2024-05-13] MEDS ORDERED: lisinopril 5mg tablet PO SCH (10:00)
[2024-05-13] MEDS: lisinopril 5mg tablet PO ONE (12:58)
[2024-05-13] MEDS: spironolactone 25 MG tablet PO ONE (12:58)
[2024-05-13] MEDS: carVEDilol 3.125mg tablet PO SCH (13:14)
[2024-05-13] MEDS: metoprolol succinate 25mg (24-HOUR) SR. Tablet PO SCH (17:10)
[2024-05-13 18:00] VITALS: BP 84/57; PULSE 108; RESP 17; TEMP 98.4; O2SAT 93
[2024-05-13 20:00] VITALS: RESP 17; O2SAT 93
[2024-05-13 22:00] VITALS: BP 89/51; PULSE 96; RESP 18; TEMP 98; O2SAT 100
[2024-05-14 06:00] VITALS: BP 96/64; PULSE 68; RESP 17; TEMP 98; O2SAT 91
[2024-05-14 07:25] LABS: BASOPHILS % (AUTO) 0.6 % (0-1); EOSINOPHILS # (AUTO) 0.1 X10'3 (0-0.9); EOSINOPHILS % (AUTO) 2.4 % (0-6); HEMATOCRIT 38.3 % (35.0-45.0); HEMOGLOBIN 12.6 g/dl (12.0-16.0); LYMPHOCYTES # (AUTO) 1.1 X10'3 (1.1-4.8); LYMPHOCYTES % (AUTO) 19.7 % (21-51); MEAN CORPUSCULAR HEMOGLOBIN 30.5 PG (27.0-31.0); MEAN CORPUSCULAR HGB CONC 32.9 g/dL (33.0-36.5); MEAN CORPUSCULAR VOLUME 92.7 FL (78-98); MEAN PLATELET VOLUME 7.6 FL (7.4-10.4); MONOCYTES # (AUTO) 0.5 X10'3 (0-0.9); NEUTROPHILS # (AUTO) 3.9 X10'3 (1.8-7.7); NEUTROPHILS % (AUTO) 69.3 % (42-75); PLATELET COUNT 219 X10'3 (140-440); RED BLOOD COUNT 4.13 X10'6 (4.20-5.60); RED CELL DISTRIBUTION WIDTH 16.7 % (11.5-14.5); WHITE BLOOD COUNT 5.7 X10'3 (4.5-11.0)
[2024-05-14 08:00] VITALS: RESP 16; O2SAT 96
[2024-05-14] MEDS: metoprolol succinate 25mg (24-HOUR) SR. Tablet PO SCH (08:00)
[2024-05-14] MEDS: spironolactone 25 MG tablet PO SCH (08:07)
[2024-05-14 08:25] LABS: ALANINE AMINOTRANSFERASE 11 U/L (12-78); ALBUMIN 2.2 G/DL (3.4-5.0); ALBUMIN/GLOBULIN RATIO 0.6 (1.1-1.5); ALKALINE PHOSPHATASE 157 IU/L (46-116); ANION GAP 6 (8-16); ASPARTATE AMINO TRANSFERASE 23 U/L (10-37); BILIRUBIN,TOTAL 0.6 MG/DL (0.1-1.0); BLOOD UREA NITROGEN 33 MG/DL (7-18); BUN/CREATININE RATIO 37.9 (10.0-20.0); CALCIUM 8.4 MG/DL (8.5-10.1); CHLORIDE 101 MMOL/L (99-107); CREATININE 0.87 MG/DL (0.40-0.90); GLUCOSE 107 MG/DL (70-104); POTASSIUM 3.7 MMOL/L (3.5-5.1); SODIUM 135 MMOL/L (135-145); TOTAL CARBON DIOXIDE 28.1 MMOL/L (24-32); TOTAL PROTEIN 5.7 G/DL (6.4-8.2); eCRCL 47 ML/MIN; eGFR 62 ML/MIN
[2024-05-14 10:00] VITALS: BP 83/57; PULSE 101; RESP 18; TEMP 97.4; O2SAT 98
[2024-05-14] MEDS ORDERED: ipratropium/albuterol 3ml nebule NEB PRN (10:50)
[2024-05-14 12:43] VITALS: BP 92/59
[2024-05-14] MEDS: HYDROcodone/acetaminophen 5mg/325mg tablet PO ONE (12:50)
[2024-05-14 13:50] VITALS: RESP 14
== END 2024-05-14 16:45 | DRG 698 ==
LOC: ER 09:32 → ED HOLD 15:36 → ORTHO 4S 21:15
PROVIDERS: ADMIT Internal Medicine; ATTEND Internal Medicine
DX: T83.518A Infection and inflammatory reaction due to other urinary catheter, initial encounter (principal); G93.41 Metabolic encephalopathy; I50.23 Acute on chronic systolic (congestive) heart failure; N17.0 Acute kidney failure with tubular necrosis; I13.0 Hypertensive heart and chronic kidney disease with heart failure and stage 1 through stage 4 chronic kidney disease, or unspecified chronic kidney disease; N39.0 Urinary tract infection, site not specified; R65.10 Systemic inflammatory response syndrome (SIRS) of non-infectious origin without acute organ dysfunction; I48.91 Unspecified atrial fibrillation; I34.0 Nonrheumatic mitral (valve) insufficiency; K80.20 Calculus of gallbladder without cholecystitis without obstruction; G47.30 Sleep apnea, unspecified; E78.5 Hyperlipidemia, unspecified; Z86.79 Personal history of other diseases of the circulatory system; Z90.49 Acquired absence of other specified parts of digestive tract; Z90.710 Acquired absence of both cervix and uterus; Z88.0 Allergy status to penicillin; Z88.2 Allergy status to sulfonamides; Z79.84 Long term (current) use of oral hypoglycemic drugs; F03.90 Unspecified dementia, unspecified severity, without behavioral disturbance, psychotic disturbance, mood disturbance, and anxiety; Y92.9 Unspecified place or not applicable; N18.30 Chronic kidney disease, stage 3 unspecified; L89.156 Pressure-induced deep tissue damage of sacral region
CPT/HCPCS: 36415; 70450; 71045; 71046; 74177; 80053; 81001; 82248; 83605; 83880; 84145; 84439; 84443; 84484; 85025; 85610; 85730; 86885; 86900; 86901; 87040; 87081; 87088; 93005; 93306; 97110; 97161; 97530; 99285; A4314; A6213; A6250; G0378; J0692; J0696; J1644; J1940; J7030; J7040; Q9967